=== PATIENT | male | born 1945 | race Two or more races ===

== ENCOUNTER → 2019-05-03 07:52 | Outpatient (CLI) | payer OTHER | END | disposition home or self-care (01) | LOC: LAB 07:52 | DX: N47.1 Phimosis (principal); I10 Essential (primary) hypertension; E11.9 Type 2 diabetes mellitus without complications ==

== ENCOUNTER 2019-05-03 09:47 | Outpatient (CLI) | payer OTHER | END 2019-05-03 09:57 | disposition home or self-care (01) | LOC: SONOGRAMA 09:47 | DX: R31.21 Asymptomatic microscopic hematuria (principal); N47.1 Phimosis ==

== ENCOUNTER 2019-05-15 05:05 | Day surgery (SDC) | payer OTHER ==
[~2019-05-15 05:05] MED LIST: GLIMEPIRIDE1 MG PO; IBRERSARTAN PO
== END 2019-05-15 13:50 | disposition home or self-care (01) ==
LOC: CIR.AMB 05:05
DX: N47.1 Phimosis (principal)